=== PATIENT | female | born 1945 | race Caucasian/White ===

== ENCOUNTER 2024-03-12 09:34 | Outpatient (AMB) | payer MEDICARE, SELFPAY ==
--- NOTE | 2024-03-12 09:47 | A.OFFVIS_ITS ---
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 She also reports intermitte nt bilateral wrist discomfort. She states that she had x-rays of her bilateral wrists which show ?arthritis?. She did undergo left total knee replacement surgery by Dr. Garcia in 2010. She denies any fevers or chills. She continues with her range of motion exercises. Allergies azithromycin [From Zithromax Z-Ward] Adverse Reaction (Severe, Verified 03/12/24 09:49) severe bleeding erythromycin base Adverse Reaction (Severe, Verified 03/12/24 09:49) severe bleeding tetracycline Adverse Reaction (Severe, Verified 03/12/24 09:49) yeast infection semaglutide [From Ozempic] Adverse Reaction (Intermediate, Verified 03/12/24 09:49) nausea, severe headaches amoxicillin [From Augmentin] Adverse Reaction (Unknown, Verified 03/12/24 09:49) Nausea clavulanic acid [From Augmentin] Adverse Reaction (Unknown, Verified 03/12/24 09:49) Nausea sulfamethoxazole [From Bactrim] Adverse Reaction (Unknown, Verified 03/12/24 09:49) Unknown trimethoprim [From Bactrim] Adverse Reaction (Unknown, Verified 03/12/24 09:49) Unknown Medication List - Last Reconciled 03/13/24 by Van Barnes MD amlodipine 5 mg PO BID amoxicillin 1,000 mg PO BID atenolol 50 mg PO DAILY blood sugar diagnostic (FreeStyle Lite Strips) As directed clorazepate dipotassium 7.5 mg PO DAILY dicyclomine 10 mg PO TID glipizide ER 10 mg PO BID insulin glargine (Lantus Solostar U-100 Insulin) units subcut omeprazole 40 mg PO DAILY ondansetron 4 mg PO Q8H PRN PFSH Medical History (Updated 03/08/24 @ 12:15 by RYAN Kaiser) Nonalcoholic steatohepatitis Osteopenia Hepatosplenomegaly IBS (irritable bowel syndrome) GERD (gastroesophageal reflux disease) Essential (primary) hypertension Major depressive disorder Thrombocytopenic disorder Obesity Type 2 diabetes mellitus without complication Adenomatous polyp of colon Surgical History (Updated 03/08/24 @ 12:28 by RYAN Kaiser) H/O hernia repair History of hysterectomy, supracervical History of cholecystectomy History of total bilateral knee replacement Social History (Updated 03/12/24 @ 09:50 by ERICA Chu) Alcohol intake: former Patient Tobacco Use Status: Former Tobacco user Current occupational status: retired Physical Exam Vital Signs: BMI result Body Mass Index 35.1 Const Other: Well-nourished well-developed very friendly female awake alert and oriented x3 in no acute distress Extrem Other: Bilateral lower extremity examination shows good capillary refill, no skin lesions noted, normal sensation light touch Left knee examination shows that the surgical incision is well healed, no erythema, full active extension and flexion to 120 degrees, her patella tracks well, no instability Results Reviewed Results Reviewed: X-rays of the patient's left knee show a total knee arthroplasty in good position with no signs of loosening, no acute bony abnormalities Assessment & Plan Assessment & Plan (1) Left knee pain: Code(s): M25.562 - Pain in left knee Category: Medical Plan Ms. Amador presents with left knee discomfort most likely due to soft tissue and bony contusion. At this point she does not appear to have suffered any damage to her total knee arthroplasty. She will continue with her [id number] exercises to prevent stiffness. She will contact me prior to her follow-up appointment in 3 months should her symptoms worsen in any way. I will also have her evaluated by our hand service for evaluation of her bilateral wrist pains. She will follow-up as instructed. Feel free to call me at any time should questions regarding her orthopedic management arise. I spent 21 minutes in reviewing the patient's records and imaging studies, seeing the patient and documenting in the medical record. Orders: Orders XR knee LT 3V 03/12/24 M25.562 - Pain in left knee Coding Level of Care Code Est Pt Level 3 (39666) Complex EM visit Add On G2211 Diagnoses Left knee pain M25.562
[2024-03-12 09:49] VITALS: BMI 35.1
--- OUTSIDE RECORDS SUMMARY | 2024-03-13 19:30 | XMS_ITS ---
Author Name Bobby Harrell Address [address] [phone] Organization [facility] Address [address] [id number] Care Team Providers Care Wildlife Biology Technician Name Role Phone Bobby Harrell Primary Care Physician Unavail able Bobby Harrell Preferred Provider Unavailable Allergies and Adverse Reactions Name Reaction Notes Zithromax Z-Ward Medications Active Name Start Date Estimated Comple tion Date SIG Comments glipizide 5 mg tablet take 1 tablet (5 mg) by oral route 2 times per day before meals atenolol oral amlodipine oral omeprazole 40 mg capsule,delayed release take 1 capsule ( 40 mg) by oral route once daily before a meal Lantus U-100 Insulin subcutaneous 100 unit/mL subcutaneous solution Name Start Date Expiration Date SIG Comments Bactrim DS 800 mg-160 mg tablet 11/04/2022 11/11/2022 take 1 tablet by ora l route every 12 hours for 7 days Problem List Not available. Vital Signs Date Time BP-Sys(mm[Hg] BP-Brenda(mm[Hg]) HR(bpm) RR(rpm) Temp WT HT HC BMI BSA BMI Percentile O2 Sat(%) 023 10:57 :00 AM 130 mm[Hg] 80 mm[Hg] 91 {beats}/ min 18 rpm 97.8 F 188 lbs 62 in 34.3 853 kg/m 2 1.93 14 m2 96 % Social History Name Description Comments Tobacco Never smoker History of Procedures Date Ordered Description Order Status 11/04/2022 12:00 AM SYST BP GE 130 - 139MM HG Revi ewed 11/04/2022 12:00 AM DIAST BP 80-89 MM HG Reviewed 11/04/2022 12:00 AM URINALYSIS NONAUTO W/SCOPE Rev iewed 11/04/2022 12:00 AM URINE CULTURE/COLONY COUNT Rev iewed Results Summary Date and Description Results 11/04/2022 2:21 PM CULTURE, URINE, ROUT INE SEE NOTECULTURE, URINE, ROUTINE SEE NOTE History of Past Illness Name Date of Onset Comments Diabetes BMI 34.0-34.9,adult Nov 04 2022 10:58AM Urinary tract infection with out hematuria, site unspecified Nov 04 2022 10:58AM Payers Insurance Name Company Name Plan Name Plan Number Policy Num tr Policy Group Number Start Date [facility] [id number] N/A History of Encounters Visit Date Visit Type Provider 11/04/2022 New Sick/Misc Visit Tiffanie MEJIA
== END 2024-03-12 10:11 | disposition home or self-care (01) ==
PROVIDERS: PCP Family Medicine; Visit Provider Orthopaedic Surgery
DX: M25.562 Pain in left knee (principal)
CPT/HCPCS: 99213; G2211

== ENCOUNTER 2024-03-12 14:54 | Outpatient (REF) | payer MEDICARE, SELFPAY ==
--- NOTE | ~2024-03-12 | XR_ITS ---
EXAMINATION: XR LEFT KNEE CLINICAL INFORMATION: Pain in left knee M25.562. COMPARISON: None available TECHNIQUE: Three views of the left knee. FINDINGS: Total knee arthroplasty with usual position and alignment. No acute periprosthetic fracture. There is a ill-defined lucencies along the lateral aspect of the tibial component of the prosthesis. This could be related to postsurgical changes versus lucency related to hardware failure. Trace suprapatellar joint fluid. XR/XR knee LT 3V IMPRESSION: No evidence of acute periprosthetic fracture. Ill-defined lucencies along the lateral aspect of the tibial component of prosthesis, could be related to postsurgical changes versus sequela of hardware failure such as from loosening or small particle disease. Correlate prior imaging for further evaluation with bone scan as clinically indicated. Study is assigned/presented to me for interpretation on Apr 18, 2024 Electronically signed by: Keith Romano MD 04/18/2024 08:46 AM [facility]
--- OUTSIDE RECORDS SUMMARY | 2024-03-14 02:55 | XMS_ITS ---
Author Name Bobby Harrell Address [address] [phone] Organization [facility] Address [address] [phone] Care Team Providers Care Field Gauger Name Role Phone Bobby Harrell Primary Care [...] Num tr Policy Group Number Start Date [facility] [id number] N/A History of Encounters Visit Date Visit Type Provider 11/04/2022 New Sick/Misc Visit Tiffanie MEJIA
== END 2024-03-12 14:55 | disposition home or self-care (01) ==
LOC: HO.HOSX 14:54
PROVIDERS: Visit Provider Orthopaedic Surgery
DX: M25.562 Pain in left knee (principal)
CPT/HCPCS: 73562; 99212

== ENCOUNTER 2024-04-08 08:13 | Outpatient (REF) | payer MEDICARE, SELFPAY ==
--- NOTE | ~2024-04-08 | XR_ITS ---
EXAMINATION: XR WRIST 3 OR MORE VIEWS RIGHT HISTORY: M25.531 - Pain in right wrist COMPARISON: There are no prior studies available for comparison. FINDINGS: Three views of the right wrist are submitted. The bones are osteopenic. There is no fracture or dislocation. There is severe osteoarthritis of the 1st carpometacarpal joint with joint space narrowing and osteophyte formation. There is moderate degenerative change involving the radial aspect of the carpus.. There is a soft tissue calcification adjacent to the ulnar styloid of uncertain significance. XR/XR wrist RT min 3V IMPRESSION: Severe osteoarthritis of the 1st carpometacarpal joint. Electronically signed by: Geo Wallace MD 04/10/2024 01:42 PM EST
--- NOTE | ~2024-04-08 | XR_ITS ---
EXAMINATION: XR WRIST 3 OR MORE VIEWS LEFT HISTORY: M25.532 - Pain in left wrist COMPARISON: There are no prior studies available for comparison. FINDINGS: Three views of the left wrist are submitted. The bones are osteopenic. There is no fracture or dislocation. There is moderate to severe osteoarthritis of the radial aspect of the carpus and the 1st carpometacarpal joint with joint space narrowing and osteophyte formation. There are also hook shaped osteophytes off the 4th and 5th metacarpal carpal heads which can be seen in the setting of CPPD arthritis. There is a soft tissue calcification adjacent to the ulnar styloid, of uncertain significance. XR/XR wrist LT min 3V IMPRESSION: Osteoarthritis of the left wrist as described. Hook-shaped osteophytes off the 4th and 5th metacarpal heads which can be seen in the setting of CPPD arthritis. Electronically signed by: Geo Wallace MD 04/10/2024 01:53 PM [facility]
== END 2024-04-08 08:14 | disposition home or self-care (01) ==
LOC: HO.HOSX 08:13
DX: M19.031 Primary osteoarthritis, right wrist (principal); M25.531 Pain in right wrist; M25.532 Pain in left wrist; M19.032 Primary osteoarthritis, left wrist
CPT/HCPCS: 73110; 99212

== ENCOUNTER 2024-04-08 11:13 | Outpatient (AMB) | payer MEDICARE, SELFPAY ==
--- NOTE | 2024-04-08 11:28 | A.OFFVIS_ITS ---
Vital Signs 04/08/24 11:29 Height 5 ft 2 in Weight 190 lb BMI 34.7 Handedness Right Intake Visit Reasons: NProb- B/L Wrist pain Intake Note: Elizabeth is a 78 year old right hand dominant female who presents today for a new problem visit with complaints of bilateral wrist pain. Patient had a fall and she states she landed on both her hands and hit her wrist hard on the ground. She states she had bruising on her bilateral wrist down to her forearms. She expresses she had xrays done by her PCP and states she was told she has no fractures however she does have arthritis in her hands. She states she had no issues with her hands until her fall so maybe this flared up her arthritis. If she overuses her bilateral hands she expresses an exacerbation in pain. Difficulty with lifting, gripping, squeezing. 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 Denies numbness and tingling in her fingers. Allergies azithromycin [From Zithromax Z-Ward] Adverse Reaction (Severe, Verified 04/08/24 11:34) severe bleeding erythromycin base Adverse Reaction (Severe, Verified 04/08/24 11:34) severe bleeding tetracycline Adverse Reaction (Severe, Verified 04/08/24 11:34) yeast infection semaglutide [From Ozempic] Adverse Reaction (Intermediate, Verified 04/08/24 1 1:34) nausea, severe headaches amoxicillin [From Augmentin] Adverse Reaction (Unknown, Verified 04/08/24 11:34) Nausea clavulanic acid [From Augmentin] Adverse Reaction (Unknown, Verified 04/08/24 1 1:34) Nausea sulfamethoxazole [From Bactrim] Adverse Reaction (Unknown, Verified 04/08/24 11:34) Unknown trimethoprim [From Bactrim] Adverse Reaction (Unknown, Verified 04/08/24 11:34) Unknown HPI HPI NProb- B/L Wrist pain: Details: Patient is a 78-year-old female presents for evaluation of bilateral wrist pain, ongoing for several years, with an acute worsening after a fall onto bilateral outstretched hands in January. Patient states that she did have significant ecchymosis bilateral wrists after this fall. Patient was previously evaluated at her PCP for this, where X rays were taken revealing no fracture or acute bony abnormality, but did reveal significant arthritis throughout the patient's bi lateral hands and wrists. Patient does report that her pain has improved since previous evaluation, but she does still experience discomfort both of her wrists. Denies any numbness or tingling in bilateral hands [facility] Medical History (Updated 04/12/24 @ 10:27 by OC Loredo) Nonalcoholic steatohepatitis Osteopenia Hepatosplenomegaly IBS (irritable bowel syndrome) GERD (gastroesophageal reflux disease) Essential (primary) hypertension Major depressive disorder Thrombocytopenic disorder Obesity Type 2 diabetes mellitus without complication Adenomatous polyp of colon Surgical History (Updated 03/08/24 @ 12:28 by Inga Mcfarland Jorge) H/O hernia repair History of hysterectomy, supracervical History of cholecystectomy History of total bilateral knee replacement Social History Alcohol intake: former Patient Tobacco Use Status: Former Tobacco user Current occupational status: retired Review of Systems Const All systems reviewed & are unremarkable except as noted in HPI and below Physical Exam Vital Signs: BMI result Body Mass Index 34.7 Extrem Other: Patient is alert, oriented, and in no acute distress. Neuro: Normal sensation of the tips of all digits of the bilateral hands at this time Vascular: Cap refill brisk Pain: Patient reports some very mild discomfort of bilateral wrists range of motion No tenderness to palpation ROM: Patient is able to make a closed fist and extend all digits of bilateral hands fully Skin: No lacerations or abrasions. General: No ecchymosis, erythema, or evidence of infection. Psych: Appears grossly normal Affect normal Attitude cooperative Results Reviewed Results Reviewed: X-rays obtained in the office today and independently reviewed by me, Vladimir Zaman PA-C, demonstrate significant diffuse arthritis throughout bilateral wrists, but no fracture or acute bony abnormality of bilateral wrists. Assessment & Plan Assessment & Plan (1) Osteoarthritis of wrists, bilateral: Code(s): M19.031 - Primary osteoarthritis, right wrist; M19.032 - Primary osteoarthritis, left wrist Category: Medical Plan 1. Osteoarthritis of bilateral wrists Patient is educated about this condition Patient is educated about the treatment options available At this time, patient does not patient was she requires any acute intervention, it was not interested injections or occupational therapy at this time Patient says she just wanted to have an idea as to what was going on and causing her discomfort Patient will follow-up as needed with any acute concerns Orders: Orders XR wrist LT min 3V 04/08/24 M25.532 - Pain in left wrist XR wrist RT min 3V 04/08/24 M25.531 - Pain in right wrist Coding Level of Care Code Est Pt Level 3 (29765) Diagnoses Osteoarthritis of wrists, bilateral M19.031; M19.032
[2024-04-08 11:29] VITALS: BMI 34.7
--- OUTSIDE RECORDS SUMMARY | 2024-04-08 12:49 | XMS_ITS ---
Author Name Bobby Harrell Address [address] [phone] Organization [facility] Address [address] [phone] Care Team Providers Care Collection Specialist Name Role Phone Bobby Harrell Primary Care [...] Num tr Policy Group Number Start Date [facility] [id number] N/A History of Encounters Visit Date Visit Type Provider 11/04/2022 New Sick/Misc Visit Tiffanie MEJIA
== END 2024-04-08 11:49 | disposition home or self-care (01) ==
PROVIDERS: PCP Family Medicine
DX: M19.031 Primary osteoarthritis, right wrist (principal); M19.032 Primary osteoarthritis, left wrist
CPT/HCPCS: 99213

== ENCOUNTER → 2024-04-08 11:16 | Outpatient (BNV) | payer MEDICARE, SELFPAY | PROVIDERS: Visit Provider Radiology Diagnostic Radiology | DX: M18.0 Bilateral primary osteoarthritis of first carpometacarpal joints (principal); M19.032 Primary osteoarthritis, left wrist; M25.762 Osteophyte, left knee | CPT/HCPCS: 73110 ==

== ENCOUNTER 2024-06-06 10:09 | Outpatient (AMB) | payer MEDICARE, SELFPAY ==
--- NOTE | 2024-06-06 10:12 | MHC.OFFVIS ---
Intake Visit Reasons: OV- Left knee pain s/p fall 01/09/24 Intake Note: Elizabeth is a 78 year old female who presents for follow up of her left knee pain after taking a fall on 01/09/24. Patient reports she is doing well. Reports occasional catching. She is not taking anything for pain at this time. She continues with her home exercise program. She denies any fevers or chills. Allergies azithromycin [From Zithromax Z-Ward] Adverse Reaction (Severe, Verified 06/06/24 10:13) severe bleeding erythromycin base Adverse Reaction (Severe, Verified 06/06/24 10:13) severe bleeding tetracycline Adverse Reaction (Severe, Verified 06/06/24 10:13) yeast infection semaglutide [From Ozempic] Adverse Reaction (Intermediate, Verified 06/06/24 10:13) nausea, severe headaches amoxicillin [From Augmentin] Adverse Reaction (Unknown, Verified 06/06/24 10:13) Nausea clavulanic acid [From Augmentin] Adverse Reaction (Unknown, Verified 06/06/24 10:13) Nausea sulfamethoxazole [From Bactrim] Adverse Reaction (Unknown, Verified 06/06/24 10:13) Unknown trimethoprim [From Bactrim] Adverse Reaction (Unknown, Verified 06/06/24 10:13) Unknown Medication List - Last Reconciled 06/06/24 by Van Barnes MD amlodipine 5 mg PO BID amoxicillin 1,000 mg PO BID atenolol 100 mg PO DAILY blood sugar diagnostic (FreeStyle Lite Strips) As directed clorazepate dipotassium 7.5 mg PO DAILY dicyclomine 10 mg PO TID glipizide ER 10 mg PO BID insulin glargine (Lantus Solostar U-100 Insulin) units subcut omeprazole 40 mg PO DAILY ondansetron 4 mg PO Q8H PRN PFSH Medical History (Updated 04/12/24 @ 10:27 by OC Loredo) Nonalcoholic steatohepatitis Osteopenia Hepatosplenomegaly IBS (irritable bowel syndrome) GERD (gastroesophageal reflux disease) Essential (primary) hypertension Major depressive disorder Thrombocytopenic disorder Obesity Type 2 diabetes mellitus without complication Adenomatous polyp of colon Surgical History (Updated 03/08/24 @ 12:28 by RYAN Kaiser) H/O hernia repair History of hysterectomy, supracervical History of cholecystectomy History of total bilateral knee replacement Social History Alcohol intake: former Patient Tobacco Use Status: Former Tobacco user Current occupational status: retired Physical Exam Const Other: Well-nourished well-developed very friendly female awake alert and oriented x3 in no acute distress Extrem Other: Bilateral lower extremity examination shows good capillary refill, no skin lesions noted, normal sensation light touch Left knee examination shows that the surgical incision is well healed, no erythema, full active extension and flexion to 115 degrees, her patella tracks well Assessment & Plan Assessment & Plan (1) Left knee pain: Code(s): M25.562 - Pain in left knee Category: Medical Plan Ms. Amador continues to do well after undergoing left total knee replacement surgery. She will continue with her home exercise program. She does know to take antibiotics before any dental work. She will contact me prior to her follow-up appointment in 3-4 months should any questions or concerns arise. Feel free to call me at any time should questions regarding her orthopedic management arise. I spent 20 minutes in reviewing the patient's records and imaging studies, seeing the patient and documenting in the medical record. Coding Level of Care Code Est Pt Level 3 (77537) Complex EM visit Add On G2211 Diagnoses Left knee pain M25.562
--- OUTSIDE RECORDS SUMMARY | 2024-06-06 11:54 | XMS_ITS ---
Author Name Bobby Harrell Address [address] [phone] Organization [facility] Address [address] [phone] Care Team Providers Care Cold Saw Operator Name Role Phone Bobby Harrell Primary Care [...] Num tr Policy Group Number Start Date [facility] [id number] N/A History of Encounters Visit Date Visit Type Provider 11/04/2022 New Sick/Misc Visit Tiffanie MEJIA
== END 2024-06-06 10:40 | disposition home or self-care (01) ==
PROVIDERS: PCP Family Medicine; Visit Provider Orthopaedic Surgery
DX: M25.562 Pain in left knee (principal); Z96.652 Presence of left artificial knee joint; W19.XXXA Unspecified fall, initial encounter
CPT/HCPCS: 99213; G2211

== ENCOUNTER → 2024-06-06 10:09 | Outpatient (BNVA) | payer MEDICARE, SELFPAY | PROVIDERS: PCP Family Medicine; Visit Provider Orthopaedic Surgery | DX: M25.562 Pain in left knee (principal); Z91.81 History of falling | CPT/HCPCS: 99212 ==

== ENCOUNTER 2024-10-31 10:09 | Outpatient (AMB) | payer MEDICARE, SELFPAY ==
--- NOTE | 2024-10-31 10:11 | A.OFFVIS_ITS ---
Intake Visit Reasons: OV- Left knee pain s/p fall 01/09/24-follow up Intake Note: Elizabeth is a 79 year old female who presents today as a follow up for the Left knee pain s/p fall, 01/09/24. Patient had an x ray of the left knee, 03/12/24 . At last visit on 06/06/24 we discussed to continue with her home exercise program. Patient states she wants to discuss the antibiotic rules for dental work with Dr. Barnes. The patient states that her left knee discomfort is tolerable to her at this time. She has undergone right total knee replacement surgery several years ago. She reports minimal discomfort in her right knee. 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 Allergies azithromycin (From Zithromax Z-Ward) Adverse Reaction (Severe, Verified 10/31/24 10:13) severe bleeding erythromycin base Adverse Reaction (Severe, Verified 10/31/24 10:13) severe bleeding tetracycline Adverse Reaction (Severe, Verified 10/31/24 10:13) yeast infection semaglutide (From Ozempic) Adverse Reaction (Intermediate, Verified 10/31/24 10:13) nausea, severe headaches amoxicillin (From Augmentin) Adverse Reaction (Unknown, Verified 10/31/24 10:13) Nausea clavulanic acid (From Augmentin) Adverse Reaction (Unknown, Verified 10/31/24 10:13) Nausea sulfamethoxazole (From Bactrim) Adverse Reaction (Unknown, Verified 10/31/24 10:13) Unknown trimethoprim (From Bactrim) Adverse Reaction (Unknown, Verified 10/31/24 10:13) Unknown Medication List - Last Reconciled 10/31/24 by Catrachita Schneider, RN amlodipine 5 mg PO BID amoxicillin 1,000 mg PO BID atenolol 100 mg PO DAILY blood sugar diagnostic (FreeStyle Lite Strips) As directed clorazepate dipotassium 7.5 mg PO DAILY dicyclomine 40 mg PO TID glipizide ER 10 mg PO BID insulin glargine (Lantus Solostar U-100 Insulin) units subcut omeprazole 40 mg PO DAILY ondansetron 4 mg PO Q8H PRN PFSH Medical History (Updated 04/12/24 @ 10:27 by OC Loredo) Nonalcoholic steatohepatitis Osteopenia Hepatosplenomegaly IBS (irritable bowel syndrome) GERD (gastroesophageal reflux disease) Essential (primary) hypertension Major depressive disorder Thrombocytopenic disorder Obesity Type 2 diabetes mellitus without complication Adenomatous polyp of colon Surgical History (Updated 03/08/24 @ 12:28 by RYAN Kaiser) H/O hernia repair History of hysterectomy, supracervical History of cholecystectomy History of total bilateral knee replacement Social History Alcohol intake: former Patient Tobacco Use Status: Former Tobacco user Current occupational status: retired Physical Exam Const Other: Well-nourished well-developed very friendly female awake alert and oriented x3 in no acute distress Extrem Other: Right knee examination shows that the surgical incision is well healed, no erythema, full active extension and flexion to 110 degrees, her patella tracks well Left knee examination shows a minimal effusion, mild crepitus with range of motion, no instability Assessment & Plan Assessment & Plan (1) Left knee pain: Code(s): M25.562 - Pain in left knee Category: Medical Plan Ms. Amador presents with left knee pain due to degenerative joint disease. I had a lengthy discussion with the patient regarding the treatment options. At this point the patient's symptoms are tolerable to her. We will hold off on a cortisone injection. She will continue with her activities as tolerated. She will contact me prior to her follow-up appointment in 3 months should any questions or concerns arise. I spent 22 minutes in reviewing the patient's records and imaging studies, seeing the patient and documenting in the medical record. Medications: New amoxicillin Take four caps (2,000 mg) one hour before any dental work 500 mg PO ONCE 20 caps 4RF Coding Level of Care Code Est Pt Level 3 (57400) Complex EM visit Add On G2211 Diagnoses Left knee pain M25.562
--- OUTSIDE RECORDS SUMMARY | 2024-10-31 10:52 | XMS_ITS | Clinical Summary ---
Author Organization [facility] [address] [facility] Address [address] [place] [address] Phone Care Team Providers Care Ramp Supervisor Name Role Phone Natalya Lee MD Primary Care Provider [phone] Allergies Active Allergy Reactions Criticality Noted Date Comments Azithromycin High 08/16/2018 Oral bleeding Erythromycin Lactobionate 08/16/2018 Sulfamethoxazole-Trimethoprim 2018 Tetracycline 08/16/2018 Medications amLODIPine (NORVASC) 5 mg tablet Take 1 tablet (5 mg total) by mouth daily. 06/03/19 21 Active atenoloL (TENORMIN) 100 mg tablet Take 1 tablet (100 mg total) by mouth 1 (one) time each day. 06/23/19 25 Active blood sugar diagnostic (FreeStyle Lite Strips) test strip CHECK SUGARS TWICE DAILY Active FreeStyle Lite Meter monitoring kit See administration instructions. 03/28/20 24 Active clorazepate (TRANXENE) 7.5 mg tablet 1 tablet (7.5 mg total). Active glipiZIDE (GLUCOTROL XL) 10 mg 24 hr tablet Take 1 tablet (10 mg total) by mouth 2 (two) times a day. Active Lantus Solostar U-100 Insulin 100 unit/mL (3 mL) injection pen Inject 24 Units under the skin at bedtime. 01/20/20 19 Active omeprazole (PriLOSEC) [address] capsule Take 1 capsule (40 mg total) by mouth 1 (one) time each day. Active ondansetron ODT (ZOFRAN-ODT) 4 mg disintegrating tablet Dissolve 1 tablet (4 mg total) on top of the tongue every 8 (eight) hours if needed for nausea. 07/18/19 25 Active BD Flory 2nd Gen Pen Needle 32 gauge x /32 needle USE 1 PEN NEEDLE TWICE DAILY 05/27/19 25 Active dicyclomine (BENTYL) 10 mg capsule Take 1 capsule (10 mg total) by mouth 4 (four) times a day (before meals and nightly). Active diphenoxylate-atro pine (LomotiL) 2.5-0.025 mg per tablet Take 1 tablet by mouth 4 (four) times a day if needed for diarrhea. Active dicyclomine (BENTYL) 20 mg tabletIndications: Irritable bowel syndrome with diarrhea Take 1 tablet (20 mg total) by mouth 4 (four) times a day. 360 tablet 3 10/11/19 25 026 Active Active Problems Problem Noted Date Diagnosed Date Depressive disorder 07/25/2024 Diabetes mellitus type 2, co ntrolled, with complications ([facility] V24, [facility] V28) 07/25/2024 Esophageal reflux 07/25/2024 Assessment & Plan (10/10/2024 10:32 AM EDT): Patient doing well through the use of her omeprazole. Currently without significant symptoms. Did review her last endoscopic evaluation. 1. Continue omeprazole 40 mg daily. 2. Reviewed antireflux regimen and diet. Assessment & Plan (07/25/2024 3:12 PM EDT): 78-year-old female presenting with dyspeptic symptoms and intermittent dysphagia. As noted above, the patient expected to see Dr. Clayton but was willing to receive care under my direction today. We did spend some time reviewing her previous endoscopy performed by Dr. Clayton in October 2019. We did review a differential diagnosis that included a dysmotility issue, Schatzki ring, carcinoma, stricture, etc. We discussed the pros and cons of endoscopy. We discussed the role of antiacid therapy. 1. Plan for diagnostic gastroscopy with potential balloon dilation. I did review the patient the indications, alternatives and risks include but are not limited to bleeding, infection, perforation, missed diagnosis, failed procedure and surgery. 2. Further recommendations based on endoscopic findings. 3. Did discuss with the patient the need to discontinue her diabetes medicines preoperatively. She felt comfortable with this and would address any questions with the PCP. Essential hypertension 07/25/2024 Incisional hernia 07/25/2024 Irritable bowel syndrome 07/25/2024 Assessment & Plan (10/10/2024 10:32 AM EDT): 79-year-old female with long history of IBS presenting for follow-up. Unfortunately the patient has been using her medications on a as needed basis, resulting in flares unexpectedly. We discussed the options of being proactive through the use of dicyclomine on a regular basis. We talked about using Lomotil as a backup should she have symptoms despite the dicyclomine. Given she typically takes 210 mg tablets at a time I have recommended a new prescription of 20 mg tablets 4 times daily on a proactive basis. She is to continue to use Lomotil on a as needed basis. 1. Dicyclomine 20 mg p.o. 4 times daily. 2. Lomotil every 6 hours as needed. 3. Follow-up 6 months as scheduled. Orders: dicyclomine (BENTYL) 20 mg tablet; Take 1 tablet (20 mg total) by mouth 4 (four) times a day. Assessment & Plan (07/25/2024 3:12 PM EDT): The patient has a longstanding history of IBS. She has used Lomotil in the past but did inform you that her insurance will no longer cover it. She is asked for smaller prescriptions as she only takes it intermittently and is hoping to cover it with lucio payment. 1. A handwritten prescription for Lomotil, 30 tablets, 1 p.o. every 6 as needed was given to the patient with 5 refills. 2. Address diet and stress. Liver disease, unspecified 04/03/2011 Assessment & Plan (10/10/2024 10:32 AM EDT): Appears stable. Reviewed recent elastography which was normal . 1. Continue to address fatty liver through the use of exercise, weight loss and diet. 2. Routine laboratories yearly with PCP. 3. Consideration for repeat ultrasound and elastography in 1 year. Assessment & Plan (07/25/2024 3:12 PM EDT): Patient being followed in the past for what appears to be BATES cirrhosis. Currently she is asymptomatic. We did review her most recent ultrasound with elastography. 1. Routine follow-up in 1 year. 2. The patient the patient is to contact our office with any questions or concerns. Encounters Date Type Department Care Team Description 10/10/2024 10:30 AM EDT Office Visit Gastroenterology - [address] [phone] Guillermo Gamble MD Irritable bowel syndrome with diarrhea (Primary Dx); Gastroesophageal reflux disease without esophagitis; Liver disease, unspecified; Adenomatous polyp of colon, unspecified part of colon 09/20/2024 Telephone Gastroenterology - [address] [phone] Mayr Garcia NP [facility] 09/17/2024 10:03 AM EDT - 09/17/2024 11:59 PM EDT Hospital Encounter [facility] Ultrasound [address] [place] [phone] Cirrhosis of liver without ascites, unspecified hepatic cirrhosis type (CMS/HCC V24, CMS/HCC V28) Discharge Disposition: Home or Self Care 08/22/2024 Telephone Gastroenterology - [address] [phone] Sonam Wiley [place] 08/20/2024 Telephone Gastroenterology - 299 [facility] [address] [phone] Mary Garcia NP 08/19/2024 2:43 PM EDT - 08/19/2024 11:59 PM EDT Hospital Encounter [facility] Xray [address] [place] [phone] Periumbilical abdominal pain Discharge Disposition: Home or Self Care 08/19/2024 2:20 PM EDT Office Visit Gastroenterology - [address] [place] [address] Mary Gacria NP Periumbilical abdominal pain (Primary Dx); Cirrhosis of liver without ascites, unspecified hepatic cirrhosis type ([facility]/HCC V24, [facility] V28) 08/14/2024 Telephone Gastroenterology - [address] [place] [address] Guillermo Gamble MD from Last 3 Months Surgical History Surgery Date Site/Laterality Comments CHOLECYSTECTOMY PROCEDURE: DE LAPAROSCOPY SURG CHOLECYSTECTOMY HYSTERECTOMY PROCEDURE: HISTORICAL HYSTERECTOMY TOTAL KNEE ARTHROPLASTY PROCEDURE: DE ARTHRP KNE CONDYLE&PLATU MEDIAL&LAT COMPARTMENTS; COMMENT: left Medical History Medical History Date Comments Essential hypertension DX:Essent ial hypertension Diabetes mellitus type 2, co ntrolled, with complications (CMS/HCC V24, [facility] V28) DX:Diabetes mellitus type 2, controlled, with complications ([facility]) Esophageal reflux DX:Esophageal reflux Depressive disorder DX:Depressiv e disorder Liver disease, unspecified 2011 DX:Li maxim disease, unspecified Irritable bowel syndrome DX:Irri table bowel syndrome Incisional hernia DX:Incisional hernia Family History Medical History Relation Name Comments Diabetes Brother Hypertension Mother Hypertension Son Relation Name Status Comments Brother Father Mother Alive Son Social History Tobacco Use Types Packs/Day Years Used Date Smoking Tobacco: Former Smokeless Tobacco: Never Tobacco Cessation:Counseling Given: Not Answered Alcohol Use Standard Drinks/Week Comments Not Currently 0 (1 standard drink = 0.6 oz pur e alcohol) Interpersonal Safety Answer Date Record ed Physical Abuse 07/29/2024 Verbal Abuse 07/29/2024 Comments No Sex and Gender Information Value Date Recorded Sex Assigned at Not on file Legal Sex Female 10:13 PM EST Gender Identity Not on file Sexual Orientation Not on file Obstetrics History Last Filed Vital Signs Vital Sign Reading Time Taken Comments Blood Pressure 128/72 07/29/2024 9:27 AM EDT Pulse 64 07/29/2024 9:27 AM EDT Temperature 37 C (98.6 F) 07/29/2024 9:07 AM EDT Respiratory Rate 20 07/29/2024 9:27 AM EDT Oxygen Saturation 98% 07/29/2024 9:27 AM EDT Inhaled Oxygen Concentration - - Weight 89.4 kg (197 lb) 10/10/2024 10:03 AM EDT Height 157.5 cm (5' 2 ) 10/10/2024 10:03 AM EDT Body Mass Index 36.03 10/10/2024 10:03 AM EDT Plan of Treatment Health Maintenance Due Date Last Done Comments Diabetes: Annual GFR (Glomerular Filtration Rate) 1946 Diabetes: Annual Foot Exam 1956 Diabetes: Annual Retina Eye Exam 1956 Hepatitis A Vaccines (1 of 2 - Risk 2-dose series) 1965 Pneumococcal Vaccine: 50+ Years (1 of 2 - PCV) 1965 Zoster Vaccines (1 of 2) 1996 Hepatitis B Vaccines (1 of 3 - Risk 3-dose series) 2006 RSV Immunization Adult Patients (1 - 1-dose 75+ series) 2021 Cholesterol Screening (Lipid Panel) 03/05/2022 Hepatitis C Screening 03/05/2022 Medicare Annual Wellness Visit 03/05/2022 Osteoporosis Screening (Bone Density Screening) 03/05/2022 Social Influencers of Health Screening 03/05/2022 Diabetes: Annual Urine Albumin-Creatinine Ratio (uACR) 03/19/2022 Diabetes: Blood Sugar Control Test (HGBA1C) 03/19/2022 Hypertension/CHF/CAD Annual BMP Blood Test 03/19/2022 COVID-19 Vaccine ( season) 2023 08/11/2020, 07/21/2020 Depression Screening 04/03/2024 Influenza Vaccine (#1) 2024 , 12/29/2022, 01/02/2020, Additional history exists Falls Risk Assessment 07/29/2025 07/29/2024 DTaP,Tdap,and Td Vaccines (2 - Td or Tdap) 01/17/2034 01/18/2024 HIB Vaccines Aged Out No longer eligi ble based on patient's age to complete this topic HPV Vaccines Aged Out No longer eligi ble based on patient's age to complete this topic IPV Vaccines Aged Out No longer eligi ble based on patient's age to complete this topic MMR Vaccines Aged Out No longer eligi ble based on patient's age to complete this topic Meningococcal ACWY Vaccine Aged Out N o longer eligible based on patient's age to complete this topic Meningococcal B Vaccine Aged Out No l onger eligible based on patient's age to complete this topic RSV Immunization Patients Under 20 months Aged Out No longer eligible based on patient's age to complete this topic Varicella Vaccines Aged Out No longer eligible based on patient's age to complete this topic Procedures Procedure Name Priority Date/Time Associated Diagnosis Comments US ELASTOGRAPHY PARENCHYMA Routine 09/17/2024 10:19 AM EDT Cirrhosis of liver without ascites, unspecified hepatic cirrhosis type (CMS/HCC V24, CMS/HCC V28) XR ABDOMEN 1 VIEW Routine 08/19/2024 3:0 0 PM EDT Periumbilical abdominal pain from Last 3 Months Results * US Elastography Parenchyma (09/17/2024 10:19 AM EDT) Anatomical Region Laterality Modality Body Ultrasound 09/17/2024 4:27 PM EDT Impressions 09/17/2024 4:28 PM EDT Impression: Metavir score F1 (normal to mild). Telerad PA ([id number]) -------- FINAL REPORT -------- Dictated By: Leyla Del Valle Dictated Date: 09/17/2024 16:27 ET Assigned Physician: Leyla Del Valle Reviewed and Electronically Signed By: Leyla Del Valle Signed Date: 09/17/2024 16:28 ET Workstation ID: [id number] Transcribed By: Self Edit Transcribed Date: 09/17/2024 16:27 ET Narrative 09/17/2024 4:28 PM EDT History: Cirrhosis. Findings: Hepatic shear wave elastography (mean value) is 1.40 m/s, corresponding to a Metavir score of F1 (normal - mild) 1.35-1.66. Procedure Note Leyla Del Valle MD - 09/17/2024 History: Cirrhosis. Findings: Hepatic shear wave elastography (mean value) is 1.40 m/s, corresponding toa Metavir score of F1 (normal - mild) 1.35-1.66. IMPRESSION: Impression: Metavir score F1 (normal to mild). Telerad PA ([id number]) -------- FINAL REPORT -------- Dictated By: Leyla Del Valle Dictated Date: 09/17/2024 16:27 ET Assigned Physician: Leyla Del Valle Reviewed and Electronically Signed By: Leyla Del Valle Signed Date: 09/17/2024 16:28 ET Workstation ID: [id number] Transcribed By: Self Edit Transcribed Date: 09/17/2024 16:27 ET us Mary Garcia FORMING TUBE SELECTOR IMG US PROCEDURES Final Resul t * XR Abdomen 1 View (08/19/2024 3:00 PM EDT) Anatomical Region Laterality Modality Body Radiographic Dejah ging 08/20/2024 10:2 2 AM EDT Impressions 08/20/2024 10:23 AM EDT Nonobstructive bowel gas pattern. Code 14701 -------- FINAL REPORT -------- Dictated By: Carlos Johnson Dictated Date: 08/20/2024 10:22 ET Assigned Physician: Carlos Johnson Reviewed and Electronically Signed By: Carlos Johnson Signed Date: 08/20/2024 10:23 ET Workstation ID: [id number] Transcribed By: Self Edit Transcribed Date: 08/20/2024 10:22 ET Narrative 08/20/2024 10:23 AM EDT HISTORY: The patient is a 78-year-old female with cramping and abdominal pain. FINDINGS: Supine radiographs of the abdomen demonstrate surgical clips in the right upper quadrant consistent with prior cholecystectomy. There are degenerative changes throughout the lumbar spine and included portion of the thoracic spine. 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 The bowel gas pattern is nonobstructive. The volume of fecal material is not unusually increased. No mass or radiopaque calculus is seen. Procedure Note Carlos Johnson MD - 08/20/2024 HISTORY: The patient is a 78-year-old female with cramping and abdominalpain. FINDINGS: Supine radiographs of the abdomen demonstrate surgical clips inthe right upper quadrant consistent with prior cholecystectomy. There aredegenerative changes throughout the lumbar spine and included portion ofthe thoracic spine. 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 The volume of fecal material isnot unusually increased. No mass or radiopaque calculus is seen. IMPRESSION: Nonobstructive bowel gas pattern. Code 36529 -------- FINAL REPORT -------- Dictated By: Carlos Johnson Dictated Date: 08/20/2024 10:22 ET Assigned Physician: Carlos Johnson Reviewed and Electronically Signed By: Carlos Johnson Signed Date: 08/20/2024 10:23 ET Workstation ID: [id number] Transcribed By: Self Edit Transcribed Date: 08/20/2024 10:22 ET us Mary Garcia FORMING TUBE SELECTOR IMG XR PROCEDURES Final Resul t from Last 3 Months Insurance [employer] Care Teams Ramp Supervisor Relationship Specialty Start Date End Date Natalya Lee MD [address] [place] [phone] PCP - General 06/18/22
--- OUTSIDE RECORDS SUMMARY | 2024-10-31 10:52 | XMS_ITS | Encounter Summary ---
Author Organization [facility] Address [address] [facility] [address] [place] [phone] Phone Care Team Providers Care Ct Scan Technician Name Role Phone Natalya Lee MD Primary Care Provider [phone] Encounter Details Date Type Department Care Team ([facility] st Contact Info) Description 10/06/2022 Transcribe Orders Virtual Department [address] [place] [address] Natalya Lee MD [address] [place], [place] [phone] [email or web address] Cardiac murmur, unspecified Social History Tobacco Use Types Packs/Day Years Used Date Smoking Tobacco: Former Cigarettes Q uit: 1992 Smokeless Tobacco: Never Alcohol Use Standard Drinks/Week Comments Yes 0 (1 standard drink = 0.6 oz pur e alcohol) rarely Education Answer Date Recorded Are you interested in more education? Not on rosa e 07/29/2022 Are you concerned about learning? Not on file 07/29/2022 No 07/29/2022 No 07/29/2022 Digital Access Answer Date Recorded No 08/27/2022 No 08/27/2022 Reliable internet access at home? Not on file 08/27/2022 Device with a working camera? Not on file Comments Unknown Sex and Gender Information Value Date Recorded Sex Assigned at Female 01/21/2021 10:28 AM EDT Legal Sex Female 12:16 PM EST Gender Identity Not on file Sexual Orientation Not on file documented as of this encounter Plan of Treatment Not on file documented as of this encounter Visit Diagnoses Diagnosis Cardiac murmur, unspecified documented in this encounter Care Teams Ct Scan Technician Relationship Specialty Start Date End Date Natalya Lee MD [email or web address] PCP - General Family Medicine 09/29/22 documented as of this encounter Additional Source Comments The information contained in this document represents components of the legal health record. It is not the complete legal health record.[facility]
== END 2024-10-31 10:31 | disposition home or self-care (01) ==
LOC: HO.HOS 10:09
PROVIDERS: PCP Family Medicine; Visit Provider Orthopaedic Surgery
DX: M25.562 Pain in left knee (principal)
CPT/HCPCS: 99213; G2211

== ENCOUNTER → 2024-10-31 10:09 | Outpatient (BNVA) | payer MEDICARE, SELFPAY | PROVIDERS: PCP Family Medicine; Visit Provider Orthopaedic Surgery | DX: M25.562 Pain in left knee (principal); Z91.81 History of falling; Z96.651 Presence of right artificial knee joint | CPT/HCPCS: 99212 ==